=== PATIENT | female | born 1960 | race Caucasian/White ===

== ENCOUNTER 2020-03-22 07:33 | Outpatient (REF) | payer OTHER, SELFPAY ==
[2020-03-22 10:43] LABS: Anion Gap 16 (12-20); Blood Urea Nitrogen 11 mg/dL (9-16); Carbon Dioxide 21 mmol/L (22-29); Chloride 103 mmol/L (96-108); Estimated Glomerular Filt Rate > 60; Potassium 4.5 mmol/l (3.3-5.1); Sodium 135 mmol/L (135-145)
[2020-03-22 11:06] LABS: Free T4 (Free Thyroxine) 1.23 ng/dL (0.71-1.85)
== END 2020-03-22 07:34 | disposition home or self-care (01) ==
LOC: HO.10HDL 07:33
PROVIDERS: Visit Provider Family Medicine
DX: E03.9 Hypothyroidism, unspecified (principal); I10 Essential (primary) hypertension
CPT/HCPCS: 80051; 82565; 84439; 84443; 84520

== ENCOUNTER 2021-01-23 09:13 | Outpatient (REF) | payer OTHER, SELFPAY ==
[2021-01-23 10:40] LABS: Anion Gap 15 (12-20); Blood Urea Nitrogen 8 mg/dL (9-16); Carbon Dioxide 22 mmol/L (22-29); Chloride 102 mmol/L (96-108); Estimated Glomerular Filt Rate > 60; Potassium 4.4 mmol/L (3.3-5.1); Sodium 135 mmol/L (135-145)
[2021-01-23 11:04] LABS: Thyroid Stimulating Hormone 0.11 uIU/mL (0.32-4.0)
== END 2021-01-23 09:14 | disposition home or self-care (01) ==
LOC: HO.10HDL 09:13
PROVIDERS: Visit Provider Family Medicine
DX: I10 Essential (primary) hypertension (principal); E03.9 Hypothyroidism, unspecified
CPT/HCPCS: 36415; 80051; 82565; 84439; 84443; 84520

== ENCOUNTER 2021-10-10 07:49 | Outpatient (REF) | payer OTHER, SELFPAY ==
[2021-10-10 11:05] LABS: Anion Gap 11 (12-20); Blood Urea Nitrogen 13 mg/dL (9-16); Carbon Dioxide 25 mmol/L (22-29); Chloride 109 mmol/L (96-108); Cholesterol 189 mg/dL; Estimated Glomerular Filt Rate > 60; HDL Cholesterol 50 mg/dL; LDL Cholesterol Calculated 122 mg/dl; Potassium 4.9 mmol/L (3.3-5.1); Sodium 140 mmol/L (135-145); Triglycerides 86 mg/dL
[2021-10-10 11:11] LABS: Free T4 (Free Thyroxine) 1.32 ng/dL (0.71-1.85); Thyroid Stimulating Hormone 0.06 uIU/mL (0.32-4.0)
== END 2021-10-10 07:50 | disposition home or self-care (01) ==
LOC: HO.10HDL 07:49
PROVIDERS: Visit Provider Family Medicine
DX: E03.9 Hypothyroidism, unspecified (principal); I10 Essential (primary) hypertension; E78.00 Pure hypercholesterolemia, unspecified
CPT/HCPCS: 36415; 80051; 80061; 82565; 84439; 84443; 84520

== ENCOUNTER 2022-08-22 07:40 | Outpatient (REF) | payer OTHER, SELFPAY | END 2022-08-22 07:41 | disposition home or self-care (01) | LOC: HO.10HDL 07:40 | PROVIDERS: Visit Provider Family Medicine | DX: Z13.89 Encounter for screening for other disorder (principal) ==

== ENCOUNTER 2023-04-21 07:35 | Outpatient (REF) | payer OTHER, SELFPAY ==
[2023-04-21 11:31] LABS: Anion Gap 12 (12-20); Blood Urea Nitrogen 11 mg/dL (9-16); Carbon Dioxide 25 mmol/L (22-29); Chloride 101 mmol/L (96-108); Estimated Glomerular Filt Rate > 60; Glucose Fasting 105 mg/dL (60-99); Sodium 134 mmol/L (135-145)
[2023-04-21 11:43] LABS: Free T4 (Free Thyroxine) 1.02 ng/dL (0.71-1.85); Thyroid Stimulating Hormone 0.08 uIU/mL (0.32-4.0)
== END 2023-04-21 07:36 | disposition home or self-care (01) ==
LOC: HO.10HDL 07:35
PROVIDERS: Visit Provider Family Medicine
DX: I10 Essential (primary) hypertension (principal); E03.9 Hypothyroidism, unspecified; Z83.3 Family history of diabetes mellitus; R35.0 Frequency of micturition
CPT/HCPCS: 36415; 80051; 82565; 82947; 84439; 84443; 84520

== ENCOUNTER 2023-05-08 09:14 | Outpatient (REF) | payer OTHER, SELFPAY ==
[2023-05-08 10:22] LABS: MANUAL DIFF FLAG NO
[2023-05-08 10:26] LABS: Basophils Absolute Auto 0.1 X10*3/uL (0.0-0.2); Basophils Percent Auto 1.1 % (0-2); Eosinophils Absolute Auto 0.2 X10*3/uL (0.0-0.4); Eosinophils Percent Auto 4.3 % (0-4); Hematocrit 38.6 % (37.0-47.0); Hemoglobin 12.8 g/dl (12.0-16.0); Imm Gran Abs Auto 0.01 X10*3/uL (0.00-0.03); Imm Gran Pct Auto 0.2 % (0.0-0.4); Mean Corpuscular HGB Conc 33.2 g/dl (31.0-35.0); Mean Corpuscular Hemoglobin 31.9 pg (27.0-33.0); Mean Corpuscular Volume 96.3 fL (80.0-98.0); Mean Platelet Volume 9.1 fL (9.4-12.3); Monocytes Absolute Auto 0.5 X10*3/uL (0.1-1.2); Monocytes Percent Auto 11.9 % (2-11); Neutrophils Absolute Auto 1.6 x10*3/uL (2.0-8.3); Neutrophils Percent Auto 36.5 % (45-73); Platelet Count 255 X10*3/uL (160-400); Red Blood Count 4.01 X10*6/uL (4.20-5.50); Red Cell Distribution Width 11.6 % (11.0-16.0); White Blood Count 4.4 X10*3/uL (4.8-10.8)
[2023-05-08 10:50] LABS: Rheumatoid Factor < 13.0 IU/mL (<15.0)
[2023-05-08 10:52] LABS: C Reactive Protein 0.11 mg/dL (< or = 0.50)
[2023-05-08 11:01] LABS: Ferritin 397 ng/mL (10-250)
[2023-05-08 11:10] LABS: Erythrocyte Sedimentation Rate 11 MM/HR (0-20)
[2023-05-13 11:14] LABS: Anti Nuclear Antibody Screen NEGATIVE (NEGATIVE)
== END 2023-05-08 09:15 | disposition home or self-care (01) ==
LOC: HO.10HDL 09:14
PROVIDERS: Visit Provider Family Medicine
DX: M19.90 Unspecified osteoarthritis, unspecified site (principal); M79.10 Myalgia, unspecified site
CPT/HCPCS: 36415; 82550; 82728; 85025; 85652; 86038; 86140; 86431

== ENCOUNTER 2023-11-17 07:36 | Outpatient (REF) | payer OTHER, SELFPAY ==
[2023-11-17 11:22] LABS: Estimated Average Glucose 100 mg/dL; Hemoglobin A1C 109.4872 umol/L; Hemoglobin A1c % 5.1 % (<6.0)
[2023-11-17 11:28] LABS: Anion Gap 14 (12-20); Blood Urea Nitrogen 9 mg/dL (9-16); Carbon Dioxide 25 mmol/L (22-29); Chloride 104 mmol/L (96-108); Estimated Glomerular Filt Rate > 60; Glucose Fasting 101 mg/dL (60-99); Potassium 4.4 mmol/L (3.3-5.1); Sodium 139 mmol/L (135-145)
[2023-11-17 11:47] LABS: Free T4 (Free Thyroxine) 1.09 ng/dL (0.71-1.85)
== END 2023-11-17 07:37 | disposition home or self-care (01) ==
LOC: HO.10HDL 07:36
PROVIDERS: Visit Provider Family Medicine
DX: I10 Essential (primary) hypertension (principal); E03.9 Hypothyroidism, unspecified; Z83.3 Family history of diabetes mellitus; Z13.1 Encounter for screening for diabetes mellitus
CPT/HCPCS: 36415; 80051; 82565; 82947; 83036; 84439; 84520

== ENCOUNTER 2024-04-21 15:58 | Outpatient (REF) | payer OTHER, SELFPAY | END 2024-04-21 15:59 | disposition home or self-care (01) | LOC: HO.CT 15:58 | PROVIDERS: PCP Family Medicine; Visit Provider Otolaryngology | DX: J33.0 Polyp of nasal cavity (principal); J34.2 Deviated nasal septum | CPT/HCPCS: 70486 ==

== ENCOUNTER 2024-09-10 15:01 | Outpatient (REF) | payer OTHER, SELFPAY ==
--- NOTE | ~2024-09-10 | US_ITS ---
EXAMINATION: US EXTRACRANIAL CAROTID DUPLEX, BILATERAL CLINICAL INFORMATION: Decreased pulses, right carotid artery. COMPARISON: None available. TECHNIQUE: Real-time ultrasound and Doppler techniques (integrating B-mode 2-D vascular images, Doppler spectral analysis and color-flow Doppler imaging) were utilized to interrogate the extracranial carotid arteries, the vertebral arteries and proximal subclavian arteries bilaterally. The degree of stenosis is determined by criteria similar to NASCET. FINDINGS: Right Side: 1. There is no atherosclerotic plaque seen in the bifurcation/proximal ICA region. 2. The common carotid artery PSV proximally is 124 cm/s and distally 111 cm/s. 3. The proximal internal carotid artery velocities are 95 cm/s systolic and 32 cm/s diastolic. 4. The proximal external carotid artery PSV is 140 cm/s. 5. The vertebral artery shows antegrade flow. 6. The subclavian artery waveforms are triphasic. Left Side: 1. There is no atherosclerotic plaque seen in the bifurcation/proximal ICA region. 2. The common carotid artery PSV proximally is 116 cm/s and distally 87 cm/s. 3. The proximal internal carotid artery velocities are 67 cm/s systolic and 27 cm/s diastolic. 4. The proximal external carotid artery PSV is 90 cm/s. 5. The vertebral artery shows antegrade flow. 6. The subclavian artery waveforms are triphasic. US/US carotid duplex BI IMPRESSION: 1. RIGHT: No plaque. No hemodynamically significant stenosis by ultrasound criteria. 2. LEFT: No plaque. No hemodynamically significant stenosis by ultrasound criteria. Electronically signed by: Lon Liu MD 09/14/2024 07:53 AM EDT
== END 2024-09-10 15:02 | disposition home or self-care (01) ==
LOC: HO.US 15:01
PROVIDERS: PCP Family Medicine; Visit Provider Family Medicine
DX: I65.21 Occlusion and stenosis of right carotid artery (principal)
CPT/HCPCS: 93880

== ENCOUNTER → 2024-09-10 15:18 | Outpatient (BNV) | payer OTHER, SELFPAY | PROVIDERS: PCP Family Medicine; Visit Provider Radiology Diagnostic Radiology | DX: I77.9 Disorder of arteries and arterioles, unspecified (principal) | CPT/HCPCS: 93880 ==

== ENCOUNTER 2024-10-11 07:37 | Outpatient (REF) | payer OTHER, SELFPAY ==
[2024-10-11 10:51] LABS: Basophils Absolute Auto 0.1 X10*3/uL (0.0-0.2); Basophils Percent Auto 1.7 % (0-2); Eosinophils Absolute Auto 0.3 X10*3/uL (0.0-0.4); Eosinophils Percent Auto 6.7 % (0-4); Hematocrit 36.3 % (37.0-47.0); Hemoglobin 12.7 g/dl (12.0-16.0); Imm Gran Abs Auto 0.01 X10*3/uL (0.00-0.03); Imm Gran Pct Auto 0.2 % (0.0-0.4); MANUAL DIFF FLAG SCAN; Mean Corpuscular Hemoglobin 33.7 pg (27.0-33.0); Mean Corpuscular Volume 96.3 fL (80.0-98.0); Mean Platelet Volume 9.1 fL (9.4-12.3); Monocytes Absolute Auto 0.4 X10*3/uL (0.1-1.2); Monocytes Percent Auto 9.9 % (2-11); Neutrophils Absolute Auto 1.4 x10*3/uL (2.0-8.3); Neutrophils Percent Auto 32.5 % (45-73); Platelet Count 275 X10*3/uL (160-400); Red Blood Count 3.77 X10*6/uL (4.20-5.50); Red Cell Distribution Width 12.4 % (11.0-16.0); SCAN SMEAR FLAG 1; White Blood Count 4.2 X10*3/uL (4.8-10.8)
[2024-10-11 11:07] LABS: Anion Gap 13 (12-20); Blood Urea Nitrogen 11 mg/dL (9-16); Carbon Dioxide 20 mmol/L (22-29); Chloride 107 mmol/L (96-108); Estimated Glomerular Filt Rate > 60; Potassium 4.1 mmol/L (3.3-5.1); Sodium 136 mmol/L (135-145)
[2024-10-11 11:25] LABS: Free T4 (Free Thyroxine) 1.09 ng/dL (0.71-1.85); Thyroid Stimulating Hormone 0.11 uIU/mL (0.32-4.0)
[2024-10-11 11:41] LABS: SLIDE REVIEW VERIFIED
== END 2024-10-11 07:38 | disposition home or self-care (01) ==
LOC: HO.10HDL 07:37
PROVIDERS: Visit Provider Family Medicine
DX: I10 Essential (primary) hypertension (principal); E03.9 Hypothyroidism, unspecified; D72.819 Decreased white blood cell count, unspecified
CPT/HCPCS: 36415; 80051; 82565; 84439; 84443; 84520; 85025

== ENCOUNTER 2025-01-11 15:26 | Outpatient (AMB) | payer OTHER, SELFPAY ==
--- OUTSIDE RECORDS SUMMARY | 2025-01-11 16:42 | XMS_ITS | Patient Health Record ---
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 Name Role Phone Dwayne Velazquez MD Primary Care Provider Unavailab Uzair Owens Unavailable [phone] Allergies Allergen (clinical drug ingredient) Drug/Non Drug Allergy documented on EMR Reaction Allergy Type Onset Date Status codeine Codeine Unknown Drug Allergy Active latex Unknown Drug Allergy Active Adhesive Tape Unknown Drug Allergy Act adan Shrimp/Shell Fish Unknown Drug Allergy Active Reason For Referral No Information Medications Medication SIG (Take, Route, Fr equency, Duration) Notes Start Date End Date Status Lisinopril Active Lorazepam Active Levothyroxine Sodium Active Social History Tobacco Use: Social History Observation Description Date Details (start date - stop date) Current Smoker NA - NA Tobacco Use/Smoking Question Answer Notes Are you a: current smoker How often do you smoke cigarettes? every day Alcohol Screen Question Answer Notes Did you have a drink contain ing alcohol in the past year? Yes How often did you have a dri nk containing alcohol in the past year? 2 to 3 times a week (3 points) Points 3 Interpretation Positive Problems Problem Type SNOMED Code ICD Code Onset Dates Problem Status W/U Status Risk Notes Problem Plantar wart (87549410) Plantar wart (B07.0) Active confirmed Plan Of Treatment Pending Test Test Name Order Date [id number] Destruction, -08/09/2014 [id number] Destruction, 06-0812/26/2015 Insurance Providers Payer Name Payer Address Payer Phone Subscriber Number Group Number Insured Name Patient Relationship to Insured Coverage Start Date Coverage End Date [facility] [address] [place] [address] [id number] Tiffany Scott Self - patient is the insured Medical (General) History Medical History History ICD Code Anxiety Measles Hypertension Sinus conditions Thyroid disorder
== END 2025-01-11 15:37 | disposition home or self-care (01) ==
LOC: HO.HMGAL 15:26
PROVIDERS: PCP Family Medicine; Visit Provider Registered Nurse Emergency
DX: J30.89 Other allergic rhinitis (principal)
CPT/HCPCS: 95117; 95165

== ENCOUNTER 2025-01-26 15:35 | Outpatient (AMB) | payer OTHER, SELFPAY ==
--- NOTE | 2025-01-26 08:33 | A.OFFPC_ITS ---
Vital Signs 01/26/25 15:44 Height 5 ft 6 in Weight 159 lb BMI 25.7 BP 134/80 Blood Pressure Location Rt brachial Position Sitting Pulse 74 Pulse Source Pulse Oximeter Temp 97.8 F Temp Source Temporal Artery Scan Pulse Oximetry (%) 99 Oxygen Delivery Method Room Air Intake Visit Reasons: Routine/ Dr Velazquez Medical Affairs Director Required: No Accompanied by: Self / Same As Patient Allergies acetaminophen (Tylenol-Codeine #3) Allergy (Unknown, Verified 01/26/25 08:34) Unknown codeine (Tylenol-Codeine #3) Allergy (Unknown, Verified 01/26/25 08:34) Unknown diphenhydramine (Benadryl) Allergy (Unknown, Verified 01/26/25 08:34) Unknown latex (LATEX) Adverse Reaction (Unknown, Verified 01/26/25 08:34) UNKNOWN ENVIRONMENTAL Adverse Reaction (Unknown, Uncoded 02/10/20 17:12) UNKNOWN SEASONAL ALLERGIES Adverse Reaction (Unknown, Uncoded 02/10/20 17:12) UNKNOWN Tobacco use date assessed: 01/26/25 Dental Screening Dental Screen Date: 01/26/25 Did you have a dental visit in the last 12 months?: Yes Did you have a dental problem in the last 6 months where you did not have access to dental care?: No HPI HPI Comments History of Present Illness Details The patient is a 64-year-old female presenting to [facility]. She has a history of hypertension managed with lisinopril 20mg, and hypothyroidism managed with levothyroxine 100 mcg. . Her blood pressure today was 134/80. Her medications were refilled recently, and she reports being compliant with her medication regimen. Her last TSH was 0.11 in September 2024. The patient experiences anxiety and insomnia, for which she has been taking lorazepam for the past five to six years. She reports trying various therapies, including Depakote, Ambien, melatonin, and trazodone, but none have been effective in managing her symptoms. She expresses concern about the side effects of medications and prefers to avoid taking pills unless necessary. The patient also reports arthritis-related pain, which she manages with ibuprofen as needed. She engages in physical work and walking, which exacerbates her pain, but she tries to limit ibuprofen use due to gastrointestinal side effects. Preventative care discussions included the need for colon cancer screening, which the patient acknowledges she has not yet pursued. She has no family history of breast cancer and has never had a mammogram, citing a lack of perceived need. [facility] Medical History (Updated 01/28/25 @ 16:49 by DANIELLE Weber) Anxiety Hypertension Hypothyroidism Joint pain Family History (Updated 01/26/25 @ 15:49 by Marjorie Valerio MA) Mother No problems noted. Father No problems noted. Social History Housing: House Patient Tobacco Use Status: Former Tobacco user e-Cigarette/Vaping Use: Former Use service: No Current occupational status: employed Cognitive needs: No Hearing needs: No Vision needs: Yes (reading glasses) Questionnaire PHQ-9 Over the last 2 weeks, how often have you been bothered by any of the following problems? 1. Little interest or pleasure in doing things: not at all 2. Feeling down, depressed, or hopeless: nearly every day (anxiety) 3. Trouble falling or staying asleep, or sleeping too much: nearly every day (trouble falling as sleep every night ) 4. Feeling tired or having little energy: nearly every day (always tired) 5. Poor appetite or overeating: not at all 6. Feeling bad about yourself - or that you are a failure or have let yourself or your family down: not at all 7. Trouble concentrating on things, such as reading the newspaper or watching television: not at all 8. Moving or speaking so slowly that other people could have noticed. Or the opposite - being so fidgety or restless that you have been moving around a lot more than usual: not at all 9. Thoughts that you would be better off or of hurting yourself in some way: not at all Total score: 9 Source: Developed by Drs. Kenton Herrmann, Carmella Mccloud, Mingo Valle and colleagues, with an educational marlyn from [employer]. Thrive Questionnaire Date Thrive assessed: 01/26/25 I am a: Patient Within the past 12 months, did the food you bought not last and you didn't have the money to get more?: Never true Within the past 12 months, did you worry whether your food would run out before you got money to buy more?: Never true Do you have trouble paying for medicines?: No Do you have trouble getting transportation to medical appointments?: No Do you have trouble paying your heating and electricity bill?: No Do you have trouble taking care of your child, family member or friend?: No Do you have trouble with day-to-day activities such as bathing, preparing meals, shopping, managing finances, etc.?: No Are you currently unemployed and looking for a job?: No Are you interested in more education?: No THRIVE Score: 0 AUDIT C Alcohol Use Questionnaire (AUDIT-C) 1. How often do you have a drink containing alcohol?: Monthly or less (sometimes) 2. How many drinks containing alcohol do you have on a typical day when you are drinking?: 1 or 2 3. How often do you have six or more drinks on one occasion?: Less than monthly Total Score: 2 SHERI-7 AMB Questionnaire SHERI-7 Date SHERI - 7 assessed: 01/26/25 Feeling nervous, anxious, or on edge: 3 = Nearly every day (pt said feeling anxious a lot ) Not being able to stop or control worryin = Not at all Worrying too much about different things: 3 = Nearly every day (a lot of worry regarding work) Trouble relaxin = Nearly every day Being so restless that it is hard to sit still: 0 = Not at all Becoming easily annoyed or irritable: 0 = Not at all Feeling afraid as if something awful might happen: 0 = Not at all Total SHERI-7 score (0-4 normal; 5-9 mild; 10-14 moderate; 15-21 severe): 9 Source: Developed by Drs. Kenton Herrmann, Carmelal Mccloud, Mingo Valle and colleagues, with an educational marlyn from [employer]. Review of Systems Const Details: CONSTITUTIONAL Negative HEAD/NECK Negative EAR/NOSE/MOUTH/THROAT Negative RESPIRATORY Denies cough, dyspnea CARDIOVASCULAR Denies chest pain, palpitations GASTROINTESTINAL Negative MUSCULOSKELETAL Reports arthritis-related pain, exacerbated by physical activity NEUROLOGICAL denies headaches PSYCHIATRIC Reports insomnia, anxiety Physical exam (Primary Care) Vital Signs: Last Vital Signs Temp 97.8 F 01/26/25 15:44 Pulse 74 01/26/25 15:44 BP 134/80 01/26/25 15:44 Pulse Ox 99 01/26/25 15:44 Oxygen Delivery Method Room Air 01/26/25 15:44 BMI result Body Mass Index 25.7 GENERAL Well developed, Well nourished, in no apparent distress HEENT Head-Normocephalic Eyes- PERRLA, EOMI, Conjuctiva clear, lids WNL Ears- Canals clear, TMs WNL Mouth/Throat-No lesions, no erythema, no exudate Neck- Supple, No lymphadenopathy, thyroid WNL RESPIRATORY Normal I:E, Clear to auscultation CARDIOVASCULAR Regular, rate and rhythm, No murmurs or rubs GASTROINTESTINAL Soft, nontender, normal bowel sounds, no masses MUSCULOSKELETAL Multiple joint pains, no swelling or deformity NEUROLOGICAL Gait normal PSYCHIATRIC Oriented to person, place and time Mood and affect- anxious Appearance WNL Speech WNL Thought processes WNL Tobacco/Smoking Status: Tobacco use Status Tobacco use date assessed 01/26/25 01/26/25 08:35 Patient Tobacco Use Status Former Tobacco user 01/26/25 15:51 e-Cigarette/Vaping Use Former Use 01/26/25 15:51 PHQ-9: PHQ-9 Score PHQ-9: Total score 9 01/26/25 16:21 Thrive Assessment: Date of Thrive Assessment Date Thrive assessed 01/26/25 01/26/25 08:35 Coding Level of Care Code New Pt New Pt Level 4 (76328) Patient Type New Diagnoses Acquired hypothyroidism E03.9 Hypothyroidism type: acquired Pain in other joint M25.59 Joint pain location: other joint Primary hypertension I10 Hypertension type: primary hypertension Anxiety F41.9 Time Spent (min) 35 Comment Time spent on chart review, H&P, medication reconciliation, patient education and orders Assessment & Plan Assessment & Plan (1) Hypothyroidism: Code(s): E03.9 - Hypothyroidism, unspecified Category: Medical Qualifiers: Hypothyroidism type: acquired Qualified Code(s): E03.9 - Hypothyroidism, unspecified Plan: Will get TSH. Patient will continue current medications. Will monitor. Patient will follow up in 3 months. (2) Joint pain: Code(s): M25.50 - Pain in unspecified joint Category: Medical Qualifiers: Joint pain location: other joint Qualified Code(s): M25.59 - Pain in other specified joint Plan: The patient manages arthritis-related pain with ibuprofen as needed, while engaging in physical work and walking. She limits ibuprofen use due to gastrointestinal side effects. (3) Hypertension: Code(s): I10 - Essential (primary) hypertension Category: Medical Qualifiers: Hypertension type: primary hypertension Qualified Code(s): I10 - Essential (primary) hypertension Plan: The patient's hypertension is managed with lisinopril, and her medication was recently refilled. (4) Anxiety: Code(s): F41.9 - Anxiety disorder, unspecified Category: Medical Plan: The patient has been taking lorazepam for anxiety for the past five to six years, with varying success from other therapies. A trial of sertraline is planned to manage her anxiety, with continued use of lorazepam as needed for now. Patient to follow up in 6 weeks. Plan I discussed with the patient the management of her anxiety and insomnia, recommending a trial of sertraline while continuing lorazepam as needed. We also talked about the importance of preventative screenings, such as colon cancer screening, which she has not yet pursued. Orders: Orders Complete Blood Count Auto Diff 01/26/25 Z00.00 - Encounter for general adult medical examination without abnormal findings Comprehensive Met. Panel 01/26/25 Z00.00 - Encounter for general adult medical examination without abnormal findings, Z13.1 - Encounter for screening for diabetes mellitus TSH reflex Free T4 01/26/25 E03.9 - Hypothyroidism, unspecified Lipid Panel 01/26/25 Z13.220 - Encounter for screening for lipoid disorders Medications: New sertraline take at bedtime 25 mg PO DAILY 90 tabs 0RF Patient Instructions: - Continue taking lisinopril and levothyroxine as prescribed. - Start sertraline as directed, and continue lorazepam as needed. - Schedule and complete colon cancer screening. - Follow up in six weeks to review medication effects and lab results.
[2025-01-26 15:44] VITALS: BP 134/80; PULSE 74; TEMP 36.6; O2SAT 99; BMI 25.7
--- OUTSIDE RECORDS SUMMARY | 2025-01-26 17:35 | XMS_ITS | Patient Health Record ---
Author Organization [facility] Address [address] [place] [address] Care Team Providers Care Aircraft Refueller Name Role Phone Dwayne Velazquez MD Primary Care Provider Unavailab Uzair Owens Unavailable [phone] Allergies Allergen (clinical drug ingredient) Drug/Non Drug [...] W/U Status Risk Notes Problem Plantar wart ([id number]) Plantar wart (B07.0) Active confirmed Plan Of Treatment Pending Test Test Name Order Date [id number] Destruction, -08/09/2014 [id number] Destruction, 06-0812/26/2015 Insurance Providers Payer Name Payer Address Payer Phone Subscriber Number Group Number Insured Name Patient Relationship to Insured Coverage Start Date Coverage End Date [facility] [address] [place] [address] [id number] Tiffany Scott Self - patient is the insured Medical (General) History Medical History History ICD Code Anxiety Measles Hypertension Sinus conditions Thyroid disorder
== END 2025-01-26 16:26 | disposition home or self-care (01) ==
LOC: HO.HMCHD 15:35
PROVIDERS: PCP Family Medicine; Visit Provider Physician Assistant Medical
DX: E03.9 Hypothyroidism, unspecified (principal); M25.59 Pain in other specified joint; I10 Essential (primary) hypertension; F41.9 Anxiety disorder, unspecified

== ENCOUNTER 2025-02-14 08:33 | Outpatient (AMB) | payer OTHER, SELFPAY ==
--- OUTSIDE RECORDS SUMMARY | 2025-02-14 09:52 | XMS_ITS | Patient Health Record ---
Author Organization [facility] Address [address] [place] [address] Care Team Providers Care Lock Plater Name Role Phone Dwayne Velazquez MD Primary Care Provider Unavailab Uzair Owens Unavailable [phone] Allergies Allergen (clinical drug ingredient) Drug/Non Drug [...] W/U Status Risk Notes Problem Plantar wart ([id number]) Plantar wart (B07.0) Active confirmed Plan Of Treatment Pending Test Test Name Order Date [id number] Destruction, -08/09/2014 [id number] Destruction, 06-0812/26/2015 Insurance Providers Payer Name Payer Address Payer Phone Subscriber Number Group Number Insured Name Patient Relationship to Insured Coverage Start Date Coverage End Date [facility] [address] [place] [address] [id number] Tiffany Scott Self - patient is the insured Medical (General) History Medical History History ICD Code Anxiety Measles Hypertension Sinus conditions Thyroid disorder
== END 2025-02-14 08:40 | disposition home or self-care (01) ==
LOC: HO.HMGAL 08:33
PROVIDERS: PCP Physician Assistant Medical; Visit Provider Registered Nurse Emergency
DX: J30.89 Other allergic rhinitis (principal)
CPT/HCPCS: 95117; 95165

== ENCOUNTER 2025-03-09 07:36 | Outpatient (REF) | payer OTHER, SELFPAY ==
--- OUTSIDE RECORDS SUMMARY | 2025-03-09 07:38 | XMS_ITS | Patient Health Record ---
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 Name Role Phone Dwayne Velazquez MD Primary Care Provider Unavailab Uzair Owens Unavailable [phone] Allergies Allergen (clinical drug ingredient) Drug/Non Drug [...] W/U Status Risk Notes Problem Plantar wart ([id number]) Plantar wart (B07.0) Active confirmed Plan Of Treatment Pending Test Test Name Order Date [id number] Destruction, -08/09/2014 [id number] Destruction, 06-0812/26/2015 Insurance Providers Payer Name Payer Address Payer Phone Subscriber Number Group Number Insured Name Patient Relationship to Insured Coverage Start Date Coverage End Date [facility] [address] [facility] [place] [address] [id number] Tiffany Scott Self - patient is the insured Medical (General) History Medical History History ICD Code Anxiety Measles Hypertension Sinus conditions Thyroid disorder
[2025-03-09 09:50] LABS: Hematocrit 34.5 % (37.0-47.0); Hemoglobin 12.1 g/dl (12.0-16.0); Imm Gran Abs Auto 0.01 X10*3/uL (0.00-0.03); Imm Gran Pct Auto 0.2 % (0.0-0.4); Lymphocytes Absolute Auto 2.1 X10*3/uL (1.2-4.9); MANUAL DIFF FLAG SCAN; Mean Corpuscular HGB Conc 35.1 g/dl (31.0-35.0); Mean Corpuscular Hemoglobin 33.5 pg (27.0-33.0); Mean Corpuscular Volume 95.6 fL (80.0-98.0); NRBC Abs Auto 0.000 X10*3/uL (0.0-0.012); NRBC Pct Auto 0.0 /100WBC (0.0-0.2); Platelet Count 257 X10*3/uL (160-400); Red Blood Count 3.61 X10*6/uL (4.20-5.50); SCAN SMEAR FLAG 1; White Blood Count 4.1 X10*3/uL (4.8-10.8)
[2025-03-09 10:18] LABS: Alanine Aminotransferase 43 U/L (0-31); Albumin Level 4.4 g/dL (3.5-5.0); Alkaline Phosphatase 63 U/L (39-117); Anion Gap 12 (12-20); Aspartate Amino Transferase 34 U/L (5-31); Blood Urea Nitrogen 9 mg/dL (9-16); Calcium 9.1 mg/dL (8.4-10.2); Carbon Dioxide 22 mmol/L (22-29); Chloride 108 mmol/L (96-108); Cholesterol 211 mg/dL (<200); Estimated Glomerular Filt Rate > 60; HDL Cholesterol 65 mg/dL (>40); Potassium 4.0 mmol/L (3.3-5.1); Sodium 138 mmol/L (135-145); Total Protein 7.1 g/dL (6.5-8.0); Triglycerides 290 mg/dL (<150)
[2025-03-09 11:44] LABS: Free T4 (Free Thyroxine) 1.09 ng/dL (0.71-1.85)
== END 2025-03-09 07:37 | disposition home or self-care (01) ==
LOC: HO.10HDL 07:36
PROVIDERS: Visit Provider Physician Assistant Medical
DX: Z00.00 Encounter for general adult medical examination without abnormal findings (principal); Z13.220 Encounter for screening for lipoid disorders; Z13.1 Encounter for screening for diabetes mellitus; E03.9 Hypothyroidism, unspecified
CPT/HCPCS: 36415; 80053; 80061; 84439; 84443; 85025

== ENCOUNTER 2025-03-15 15:39 | Outpatient (AMB) | payer OTHER, SELFPAY ==
[2025-03-15 07:55] VITALS: BP 126/82; PULSE 83; TEMP 36.2; O2SAT 98; BMI 25.7
--- NOTE | 2025-03-15 07:55 | A.OFFPC_ITS ---
Vital Signs 03/15/25 07:55 Height 5 ft 6 in Weight 159 lb 2 oz BMI 25.7 BP 126/82 Blood Pressure Location Lt brachial Position Sitting Pulse 83 Pulse Source Pulse Oximeter Temp 97.2 F Temp Source Temporal Artery Scan Pulse Oximetry (%) 98 Oxygen Delivery Method Room Air Intake Visit Reasons: routine Certified Ophthalmic Assistant Required: No Accompanied by: Self / Same As Patient Allergies acetaminophen (Tylenol-Codeine #3) Allergy (Unknown, Verified 03/15/25 07:55) Unknown codeine (Tylenol-Codeine #3) Allergy (Unknown, Verified 03/15/25 07:55) Unknown diphenhydramine (Benadryl) Allergy (Unknown, Verified 03/15/25 07:55) Unknown latex (LATEX) Adverse Reaction (Unknown, Verified 03/15/25 07:55) UNKNOWN ENVIRONMENTAL Adverse Reaction (Unknown, Uncoded 02/10/20 17:12) UNKNOWN SEASONAL ALLERGIES Adverse Reaction (Unknown, Uncoded 02/10/20 17:12) UNKNOWN Medication List - Last Reconciled 03/15/25 by DANIELLE Weber doxycycline hyclate 100 mg PO BID ibuprofen 800 mg PO Q12H PRN levothyroxine (Levoxyl) 88 mcg PO DAILY lisinopril 20 mg PO DAILY lorazepam 1 mg PO BID PRN sertraline 25 mg PO DAILY Tobacco use date assessed: 03/15/25 Dental Screening Dental Screen Date: 03/15/25 Did you have a dental visit in the last 12 months?: Yes Did you have a dental problem in the last 6 months where you did not have access to dental care?: No HPI HPI Comments History of Present Illness Details The patient is a 64-year-old female with HTN, Hypothyroidism, anxiety, insomnia and joing pains presenting for follow up and management of chronic sinusitis, evaluation of borderline hypothyroidism, and assessment of anxiety and insomnia. The patient reports a history of chronic sinusitis, which was recently evaluated by a surgeon who performed sinus sculpting. Despite treatment with doxycycline and nasal spray, she continues to experience congestion and swelling. She is scheduled for a follow-up and a potential CT scan, pending insurance approval due to previous multiple scans. The patient has borderline hypothyroidism, with symptoms including hair loss and fatigue. Her TSH on 03/09 was 0.05. This is prompting a planned adjustment in her medication dosage from 100 mcg to 88 mcg. She has been experiencing hair loss for years, which has recently worsened. The patient experiences anxiety and insomnia, for which she has been prescribed sertraline. Despite taking the medication, she reports persistent high stress and disrupted sleep patterns, waking up at 2 AM regularly. She has a history of trying various sleep aids, with Ambien causing sleepwalking, leading to its discontinuation. She continues to have fatigue. The patient has a history of hypertension, which is currently well-controlled wiht Lisinopril. Her BP today was 126/82. She has also noted a weight gain of approximately 6 pounds, which she attributes to her current medication regimen. Patient was informed and verbally consented to the use of an ambient scribe for clinic note documentation during this visit. [facility] Medical History (Updated 03/15/25 @ 17:44 by DANIELLE Weber) Anxiety Chronic sinusitis Hypertension Hypothyroidism Insomnia Joint pain Family History (Updated 03/15/25 @ 15:56 by Marjorie Valerio MA) Mother No problems noted. Father No problems noted. Social History Housing: House Patient Tobacco Use Status: Former Tobacco user e-Cigarette/Vaping Use: Former Use service: No Current occupational status: employed Cognitive needs: No Hearing needs: No Vision needs: Yes (reading glasses) Questionnaire PHQ-9 Over the last 2 weeks, how often have you been bothered by any of the following problems? 1. Little interest or pleasure in doing things: not at all 2. Feeling down, depressed, or hopeless: nearly every day 3. Trouble falling or staying asleep, or sleeping too much: nearly every day 4. Feeling tired or having little energy: not at all 5. Poor appetite or overeating: not at all 6. Feeling bad about yourself - or that you are a failure or have let yourself or your family down: not at all 7. Trouble concentrating on things, such as reading the newspaper or watching television: not at all 8. Moving or speaking so slowly that other people could have noticed. Or the opposite - being so fidgety or restless that you have been moving around a lot more than usual: not at all 9. Thoughts that you would be better off or of hurting yourself in some wa y: not at all Total score: 6 Depression Screening Interpretation: Negative Depression Screening Done: Yes 44629 - PHQ-9 Billing: Yes Source: Developed by Drs. Kenton Herrmann, Carmella Mccloud, Mingo Valle and colleagues, with an educational marlyn from [employer]. Thrive Questionnaire Date Thrive assessed: 03/15/25 I am a: Patient Within the past 12 months, did the food you bought not last and you didn't have the money to get more?: Never true Within the past 12 months, did you worry whether your food would run out before you got money to buy more?: Never true Do you have trouble paying for medicines?: No Do you have trouble getting transportation to medical appointments?: No Do you have trouble paying your heating and electricity bill?: No Do you have trouble taking care of your child, family member or friend?: No Do you have trouble with day-to-day activities such as bathing, preparing meals, shopping, managing finances, etc.?: No Are you currently unemployed and looking for a job?: No Are you interested in more education?: No THRIVE Score: 0 AUDIT C Alcohol Use Questionnaire (AUDIT-C) 1. How often do you have a drink containing alcohol?: Monthly or less 2. How many drinks containing alcohol do you have on a typical day when you are drinking?: 1 or 2 3. How often do you have six or more drinks on one occasion?: Less than monthly Total Score: 2 SHERI-7 AMB Questionnaire SHERI-7 Date SHERI - 7 assessed: 03/15/25 Feeling nervous, anxious, or on edge: 3 = Nearly every day Not being able to stop or control worryin = Nearly every day Worrying too much about different things: 3 = Nearly every day Trouble relaxin = Nearly every day Being so restless that it is hard to sit still: 0 = Not at all Becoming easily annoyed or irritable: 0 = Not at all Feeling afraid as if something awful might happen: 0 = Not at all Total SHERI-7 score (0-4 normal; 5-9 mild; 10-14 moderate; 15-21 severe): 12 Source: Developed by Carmella Montes Kurt Kroenke and colleagues, with an educational marlyn from [employer]. SHERI-7 Assessment Billing SHERI-7 Assessment Tool: SHERI-7 Assessment 50328 Review of Systems Narrative CONSTITUTIONAL Reports hair loss and fatigue Reports weight gain of 6 pounds HEAD/NECK Negative EAR/NOSE/MOUTH/THROAT Reports congestion and swelling in sinuses RESPIRATORY Negative CARDIOVASCULAR Denies chest pain, reports well-controlled hypertension MUSCULOSKELETAL multiple joint pains NEUROLOGICAL Negative PSYCHIATRIC Reports anxiety and insomnia, waking up at 2 AM Physical exam (Primary Care) Vital Signs: Last Vital Signs Temp 97.2 F 03/15/25 07:55 Pulse 83 03/15/25 07:55 BP 126/82 03/15/25 07:55 Pulse Ox 98 03/15/25 07:55 Oxygen Delivery Method Room Air 03/15/25 07:55 BMI result Body Mass Index 25.7 GENERAL Well developed, Well nourished, in no apparent distress HEENT Head-Normocephalic Neck- Supple, No lymphadenopathy, thyroid WNL RESPIRATORY Normal I:E, Clear to auscultation CARDIOVASCULAR Regular, rate and rhythm, No murmurs or rubs MUSCULOSKELETAL Joints- no swelling or deformity NEUROLOGICAL Gait normal PSYCHIATRIC Oriented to person, place and time Mood and affect anxiety Appearance WNL Speech WNL Thought processes WNL Tobacco/Smoking Status: Tobacco use Status Tobacco use date assessed 03/15/25 03/15/25 07:56 Patient Tobacco Use Status Former Tobacco user 03/15/25 07:56 e-Cigarette/Vaping Use Former Use 03/15/25 07:56 PHQ-9: PHQ-9 Score PHQ-9: Total score 6 03/15/25 15:58 Depression Screening Interpretation: Negative Thrive Assessment: Date of Thrive Assessment Date Thrive assessed 03/15/25 03/15/25 07:56 Coding Level of Care Code Established Pt Est Pt Level 4 (65601) Patient Type Established Diagnoses Anxiety F41.9 Primary hypertension I10 Hypertension type: primary hypertension Acquired hypothyroidism E03.9 Hypothyroidism type: acquired Insomnia G47.00 Chronic sinusitis J32.9 Additional Codes PHQ-9 - 27596 - PHQ-9 Billing: Yes ([id number]) SHERI-7 Assessment Billing - SHERI-7 Assessment Tool: SHERI-7 Assessment 19566 ([id number]) Time Spent (min) 30 Comment Time was spent on Chart review, H&P, patient education and orders. Assessment & Plan Assessment & Plan (1) Anxiety: Comment: GAD7 was 12/PHQ9 was 6 Code(s): F41.9 - Anxiety disorder, unspecified Category: Medical Plan: The patient is currently on sertraline for anxiety management. The current dose will be maintained, and the patient's response will be reassessed in four weeks. (2) Hypertension: Comment: BP today was 126/82 Code(s): I10 - Essential (primary) hypertension Category: Medical Qualifiers: Hypertension type: primary hypertension Qualified Code(s): I10 - Essential (primary) hypertension Plan: The patient's hypertension is well-controlled. No changes in management are planned at this time. Patient will continue current medications. Will monitor. Patient will follow up in 6 months (3) Hypothyroidism: Comment: TSH was 0.05 Code(s): E03.9 - Hypothyroidism, unspecified Category: Medical Qualifiers: Hypothyroidism type: acquired Qualified Code(s): E03.9 - Hypothyroidism, unspecified Plan: The patient's thyroid medication dosage will be adjusted from 100 mcg to 88 mcg due to borderline thyroid levels. A follow-up appointment is scheduled in four weeks to reassess thyroid function. (4) Insomnia: Code(s): G47.00 - Insomnia, unspecified Category: Medical Plan: The patient reports insomnia, waking up at 2 AM regularly. The current management with sertraline will continue, and sleep patterns will be reassessed in the follow-up visit. (5) Chronic sinusitis: Code(s): J32.9 - Chronic sinusitis, unspecified Category: Medical Plan: The patient is currently managing chronic sinusitis with doxycycline and nasal spray. A follow-up appointment with ENT is scheduled for April 11, and a CT scan is planned pending insurance approval due to previous multiple scans. Plan During the visit, we discussed the management of chronic sinusitis, including the use of doxycycline and nasal spray, and the potential need for a CT scan pending insurance approval. We also addressed the patient's borderline hypothyroidism, deciding to adjust the thyroid medication dosage and plan a follow-up in four weeks. The patient's anxiety and insomnia were reviewed, with a decision to maintain the current sertraline dose and reassess in the next visit. Additionally, we confirmed that the patient's hypertension is well- controlled and requires no changes at this time. Orders: Orders TSH reflex Free T4 3 Weeks E03.9 - Hypothyroidism, unspecified Medications: New lorazepam 1 mg PO BID PRN 30 tabs 1RF anxiety levothyroxine (Levoxyl) Dosage adjustment 88 mcg PO DAILY 60 tabs 0RF for low thyroid Patient Instructions: - Continue taking doxycycline and nasal spray as prescribed for sinusitis. - Follow up with the surgeon on April 11 for sinusitis evaluation. - Adjust thyroid medication dosage to 88 mcg as directed. - Maintain current sertraline dose and monitor for changes in anxiety and sleep patterns. - Schedule a follow-up appointment in four weeks for reassessment. - Complete blood draw before the next appointment.
--- OUTSIDE RECORDS SUMMARY | 2025-03-15 20:38 | XMS_ITS | Data Portability ---
Author Organization [place] - [facility], Allergy Address [address] [address] Care Team Providers Care House Repairer Name Role Phone DONELL MOSLEY Primary Care Provider LARISSA ASHFORD Referring Provider Assessment Encounter Date Assessment Date Assessment LastModified by Organization Details LastModified Time 02/28/2025 02/28/2025 Tiffany Scott is a 64-year-old female with chronic nasal congestion, deviated septum, and sinus abnormalities. The patient has a history of chronic nasal congestion and sinus infections, with imaging demonstrating bilateral maxillary sinus thickening, a small cyst in the right maxillary sinus, and marked septal deviation to the right side. She has been receiving allergy injections for environmental allergens and uses Flonase nasal spray twice daily. The plan is to initiate a three-week course of antibiotics to address chronic sinus inflammation and infection. The patient will continue using Flonase nasal spray and saline rinses, including regular use of a neti pot, to manage nasal symptoms. A follow-up CT scan of the sinuses will be performed in March or April to evaluate the effectiveness of treatment and determine if surgical intervention is necessary. If significant sinus disease persists, surgical options may include opening the sinuses and correcting the deviated septum to improve breathing. FOLLOW-UP: The patient will undergo a follow-up CT scan of the sinuses in March or April. She will continue allergy injections at [facility] and maintain her current nasal spray regimen. Antibiotics will be prescribed and sent to [facility] on [facility]. [email or web address] Not available 02/28/2025 10:09:18 Plan of Treatment Reminders Order Date Submit Date Provider Last Modified By Organization Details Last Modified Time Details Appointments CT Scan 2024 03:30P M [facility] Not available Not available Not available Establish ed 15 2024 04:00P M NICHOLAS OJEDA MD Not available Not available Not available Lab None recorded. Referral None recorded. Procedures None recorded. Surgeries None recorded. Imaging CT, sinuses, w/o contrast 2024 [id number] [email or web address] Not available 02/28/2025 10:12:44 Medication Orders doxycycli ne hyclate 100 mg tablet 2024 [facility][id number], [address] [facility], [place], [address], 02/28/2025 10:11:49 Patient TargetsNo targets recorded. Patient Instructions Encounter Date Encounter Id Patient Instructions Last Modified By Organization Details Last Modified Time 02/28/2025 [id number] - Complete the prescribed three-week course of antibiotics. - Continue using Flonase nasal spray twice daily. - Perform regular nasal rinses with a neti pot. - Schedule and undergo a follow-up CT scan of the sinuses in March or April. - Maintain allergy injections at [facility]. - Take probiotics to prevent gastrointestinal upset or yeast infections while on antibiotics. chelle Not available 02/28/2025 10:09:18 Please note: Par ts of this encounter note have been generated by AI based on audio conversation. Patient consent was required prior to utilizing this technology. Content review was required prior to finalizing the note. chelle Not available 02/28/2025 10:09:18 Reason for Referral None Reported. Results Created Date Observation Date Name Description Value Unit Range Abnormal Flag Note LastModifiedBy Organization Detail LastModifiedTime 02/29/2004/21/2024 CT, sinus es, w/o contr ast No observ ation record ed. [email or web address] Not Available 10/2024 10:18:27 Result Notes None recorded. Problems Name Problem SNOMED Code Status Onset Date Resolution Date Notes Provider Name and Address Organization Details Recorded Time Deviated nasal septum 270419735 Active NICHOLAS OJEDA MD [address] [place] [address] EM[place] rose, [phone], [facility] - [facility] 10:07:35 Perennial allergic rhinitis 085682146 Active 025 NICHOLAS OJEDA MD [address] [address], [place], [address], [facility] 10:07:37 Chronic sinusitis 07910212 Active 025 NICHOLAS OJEDA MD [address] [address], [place], [address], [facility] 10:07:43 Problem Notes None recorded. Procedures Surgical History Date Name Laterality Status Provider Name and Address Organization Details Recorded Time JMSNasal/Sinus Endoscopy completed NICHOLAS ORTEGA MD [address] [address], [place], [address], [facility] 02/28/2025 10:07:06 Imaging Results None recorded. Procedure Notes None recorded. Medical Equipment None Reported. Allergies Allergen ID Allergen Name Allergen Category Reaction Reaction Severity Criticality Documentation Date Start Date Code Code System Note Provider Name and Address Organization Details Recorded Time 882195 Tylenol-C odeine medicatio n Not available Not available Not available 02/28/2025 Courtney schwartz MA [facility] 09:49:49 362383 latex environme nt,medica tion Not available Not available Not available 02/28/2025 66299 91 RxNorm Courtney schwartz MA [facility] 09:49:56 Medications Name Sig Start Date Stop Date Status Note LastModified by Organization Details LastModified Time ibuprofen 800 mg tablet TAKE 1 EVERY 12 HOURS NEEDED FOR PAIN active Not Available Not Available No t Available hydrocortis one valerate 0.2 % topical cream APPLY TO AFFECTED AREA TWICE A DAY NEEDED 02/28 completed Not Available Not Available Not Available lisinopril 20 mg tablet TAKE 1 TABLET BY MOUTH EVERY DAY active Not Available Not Available No t Available prednisone 20 mg tablet TAKE 1 TABLET BY MOUTH EVERY MORNING FOR 5 DAYS 02/28 completed Not Available Not Available Not Available levothyroxi ne 100 mcg tablet TAKE 1 TABLET BY MOUTH DAILY 1/2 HOUR BEFORE BREAKFAST active Not Available Not Available No t Available sertraline 25 mg tablet TAKE 1 TABLET BY MOUTH DAILY AT BEDTIME active Not Available Not Available No t Available lorazepam 1 mg tablet TAKE 1 TABLET BY MOUTH TWICE A DAY NEEDED active Not Available Not Available No t Available fluticasone propionate 50 mcg/actuati on nasal spray,suspe nsion USE 1 SPRAY IN EACH NOSTRIL TWICE A DAY active Not Available Not Available No t Available doxycycline hyclate 100 mg tablet TAKE 1 TABLET BY MOUTH TWICE A DAY FOR 20 DAYS active Not Available Not Available No t Available Vitals Date Recorded Body height Body mass index (BMI) Body weight Provider Name and Address Organization Details Last Updated DateTime 02/28/2025 167.64 cm 25.8 kg/m2 54833.78 g Courtney Wagoner [place] - [facility] 02/28/2025 09:50:53 Social History None recorded. Functional Status None recorded. Mental Status None recorded. Family History Nothing Reported. Medical History Condition Response Arthritis Y Anxiety Y Thyroid Problems Y Hypertension Y Depression Y Gynecological HistoryNo gynecological history recorded. Obstetrics History GPAL:G 0 P 0 0 0 0 Past Encounters Encounter ID Performer Location Encounter Start Date Encounter Closed Date Diagnosis/Indication Diagnosis SNOMED-CT Code Diagnosis ICD10 Code Diagnosis IMO Codes Diagnosis Note [id number] NICHOLAS ALCARAZ MD [facility] [address] [address] 02/28/2025 09:31:13 02/28/2025 10:12:44 Deviated nasal septum 814050340 J34.2 93667 Perennial allergic rhinitis 385279199 J30.89 511471 Chronic sinusitis 228050 00 J32.8 38827 Health Concerns Section Related Observation LastModified by Organization Detai ls LastModified Time None Recorded Concern Status LastModified by Organization Details LastModified Time None Recorded Advance Directives Directive None Recorded Payers Insurance Date Sequence Insurance Name Policy Number Policy Medley Covered Member ID Medley Member ID Guarantor Name 02/28/2025 1 [facility] [id number] Tiffany Scott [id number] Tiffany Scott Notes Date Note Type Note Provider Name and Address Organization Details Recorded Time 02/28/2025 text/html ROS as noted in the HPI Tiffany Scott is a 64-year-old female who presents for evaluation of chronic nasal congestion and sinus issues. She reports experiencing nasal congestion and difficulty clearing mucus from her nose since approximately 2016 or 2017. She describes a sensation of mucus receding back into her nasal passages when attempting to clear it. She has undergone allergy testing and is allergic to environmental allergens. She has been receiving allergy injections for several years, starting with weekly injections for one year, then biweekly injections, and currently receiving maintenance injections every three weeks. She has a history of sinus infections and underwent a CT scan in 2016 and another in 2023, which demonstrated sinus abnormalities. She reports hearing loss, which she attributes to her sinus issues, although she does not have persistent fluid in her ears. She uses Flonase nasal spray twice daily and occasionally performs nasal rinses with a neti pot. She denies being technologically proficient and prefers to continue her allergy injections at [facility] for convenience. [id number] NICHOLAS ORTEGA MD [address] [place] [address], [place], [address], [facility] - [facility] 02/28/2025 10:11:39 OBGyn Episode No OBEpisode recorded.
--- OUTSIDE RECORDS SUMMARY | 2025-03-15 20:39 | XMS_ITS | Patient Health Record ---
Author Organization [facility] Address [address] [place] [address] Care Team Providers Care Professor Of Astronomy Name Role Phone Dwayne Velazquez MD Primary Care Provider Unavailab Uzair Owens Unavailable [phone] Allergies Allergen (clinical drug ingredient) Drug/Non Drug [...] W/U Status Risk Notes Problem Plantar wart (11495285) Plantar wart (B07.0) Active confirmed Plan Of Treatment Pending Test Test Name Order Date [id number] Destruction, -08/09/2014 [id number] Destruction, 06-0812/26/2015 Insurance Providers Payer Name Payer Address Payer Phone Subscriber Number Group Number Insured Name Patient Relationship to Insured Coverage Start Date Coverage End Date [facility] [address] [facility] [place] [address] [id number] Tiffany Scott Self - patient is the insured Medical (General) History Medical History History ICD Code Anxiety Measles Hypertension Sinus conditions Thyroid disorder
== END 2025-03-15 16:19 | disposition home or self-care (01) ==
LOC: HO.HMCHD 15:40
PROVIDERS: PCP Physician Assistant Medical; Visit Provider Physician Assistant Medical
DX: F41.9 Anxiety disorder, unspecified (principal); I10 Essential (primary) hypertension; E03.9 Hypothyroidism, unspecified; G47.00 Insomnia, unspecified; J32.9 Chronic sinusitis, unspecified

== ENCOUNTER → 2025-03-15 15:39 | Outpatient (BNVA) | payer OTHER, SELFPAY | PROVIDERS: PCP Physician Assistant Medical; Visit Provider Physician Assistant Medical | DX: F41.9 Anxiety disorder, unspecified (principal); I10 Essential (primary) hypertension; E03.9 Hypothyroidism, unspecified; G47.00 Insomnia, unspecified; J32.9 Chronic sinusitis, unspecified; Z13.31 Encounter for screening for depression; Z13.39 Encounter for screening examination for other mental health and behavioral disorders | CPT/HCPCS: 96127 ==

== ENCOUNTER 2025-03-21 11:46 | Outpatient (AMB) | payer OTHER, SELFPAY ==
--- OUTSIDE RECORDS SUMMARY | 2025-03-21 15:12 | XMS_ITS | Data Portability ---
Author Organization [place] - [facility], Allergy Address [address] [address] Care Team Providers Care Security Door Installer Name Role Phone DONELL MOSLEY Primary Care Provider [phone] LARISSA ASHFORD Referring Provider [phone] Assessment Encounter Date Assessment Date Assessment LastModified [...] April. She will continue allergy injections at [facility] and maintain her current nasal spray regimen. Antibiotics will be prescribed and sent to [facility] on [facility]. [email or web address] Not available 02/28/2025 10:09:18 Plan [...] doxycycli ne hyclate 100 mg tablet 2024 [facility]/Pharmacy #[id number], [address] [facility], [place], [address], 02/28/2025 10:11:49 Patient TargetsNo targets recorded. Patient Instructions Encounter Date Encounter Id Patient Instructions Last Modified By Organization Details Last Modified Time 02/28/2025 [id number] - Complete the prescribed three-week course of antibiotics. - Continue using Flonase nasal spray twice daily. - Perform regular nasal rinses with a neti pot. - Schedule and undergo a follow-up CT scan of the sinuses in March or April. - Maintain allergy injections at [facility]. - Take probiotics to prevent gastrointestinal [...] contr ast No observ ation record ed. [email or web address] Not Available 10/2024 10:18:27 Result Notes None recorded. Problems Name Problem SNOMED Code Status Onset Date Resolution Date Notes Provider Name and Address Organization Details Recorded Time Deviated nasal septum 209597733 Active NICHOLAS OJEDA MD [address] [place] [address] EM[place] rose, [address], [facility] - [facility] 10:07:35 Perennial allergic rhinitis 053184298 Active 025 NICHOLAS OJEDA MD [address] [address], [place], [address], [facility] 10:07:37 Chronic sinusitis 06731085 Active 025 NICHOLAS OJEDA MD [address] [address], [place], [address], [facility] 10:07:43 Problem Notes None recorded. Procedures Surgical History Date Name Laterality Status Provider Name and Address Organization Details Recorded Time JMSNasal/Sinus Endoscopy completed NICHOLAS ORTEGA MD [address] [address], [place], [address], [facility] 02/28/2025 10:07:06 Imaging Results None recorded. Procedure Notes None recorded. Medical Equipment None Reported. Allergies Allergen ID Allergen Name Allergen Category Reaction Reaction Severity Criticality Documentation Date Start Date Code Code System Note Provider Name and Address Organization Details Recorded Time 503596 Tylenol-C odeine medicatio n Not available Not available Not available 02/28/2025 Courtney schwartz [place] [facility] 09:49:49 728790 latex environme nt,medica tion Not available Not available Not available 02/28/2025 12099 91 RxNorm Courtney schwartz [place] [facility] 09:49:56 Medications Name Sig Start Date Stop [...] Not Available Not Available No t Available levothyroxi ne 88 mcg tablet TAKE 1 TABLET BY MOUTH DAILY FOR FOR LOW THYROID. DOSAGE ADJUSTMEN T active Not Available Not Available No t [...] Updated DateTime 02/28/2025 167.64 cm 25.8 kg/m2 73873.78 g Courtney Wagoner [place] - [facility] 02/28/2025 09:50:53 Social History None recorded. Functional [...] ICD10 Code Diagnosis IMO Codes Diagnosis Note [id number] NICHOLAS ALCARAZ MD [facility] of [address] [address] 02/28/2025 09:31:13 02/28/2025 10:12:44 Deviated nasal septum 579903356 J34.2 41049 Perennial allergic rhinitis 535407684 J30.89 954439 Chronic sinusitis 985742 00 J32.8 70476 Health Concerns Section Related Observation LastModified by Organization Detai ls LastModified Time None Recorded Concern Status LastModified by Organization Details LastModified Time None Recorded Advance Directives Directive None Recorded Payers Insurance Date Sequence Insurance Name Policy Number Policy Medley Covered Member ID Medley Member ID Guarantor Name 02/28/2025 1 [facility] [id number] 1 Tiffany Scott [id number] Tiffany Scott Notes Date Note Type Note [...] prefers to continue her allergy injections at [facility] for convenience. NOSE=[id number] NICHOLAS ORTEGA MD [address] [place] [address], [address], [place] - [facility] 02/28/2025 10:11:39 OBGyn Episode No OBEpisode recorded.
--- OUTSIDE RECORDS SUMMARY | 2025-03-21 15:12 | XMS_ITS | Patient Health Record ---
Author Organization [facility] Address [address] [place] [address] Care Team Providers Care Concrete Handler Name Role Phone Dwayne Velazquez MD Primary Care Provider Unavailab Uzair Owens Unavailable [phone] Allergies Allergen (clinical drug ingredient) Drug/Non Drug [...] W/U Status Risk Notes Problem Plantar wart (37268956) Plantar wart (B07.0) Active confirmed Plan Of Treatment Pending Test Test Name Order Date 71252-Denh Destruction, -08/09/2014 13908-Bbff Destruction, 06-0812/26/2015 Insurance Providers Payer Name Payer Address Payer Phone Subscriber Number Group Number Insured Name Patient Relationship to Insured Coverage Start Date Coverage End Date [facility] [address] [place] [address] [id number] Tiffany Scott Self - patient is the insured Medical (General) History Medical History History ICD Code Anxiety Measles Hypertension Sinus conditions Thyroid disorder
== END 2025-03-21 11:47 | disposition home or self-care (01) ==
LOC: HO.HMGAL 11:46
PROVIDERS: PCP Physician Assistant Medical; Visit Provider Registered Nurse Emergency
DX: J30.89 Other allergic rhinitis (principal)
CPT/HCPCS: 95117; 95165

== ENCOUNTER 2025-04-04 08:18 | Outpatient (REF) | payer OTHER, SELFPAY ==
--- OUTSIDE RECORDS SUMMARY | 2025-04-04 08:40 | XMS_ITS | Data Portability ---
Author Organization [place] - [facility], Allergy Address [address] [address] Care Team Providers Care Outpatient Phlebotomist Name Role Phone DONELL MOSLEY Primary Care [...] April. She will continue allergy injections at [facility] and maintain her current nasal spray regimen. Antibiotics will be prescribed and sent to [facility] on [facility]. [email or web address] Not available 02/28/2025 10:09:18 Plan [...] doxycycli ne hyclate 100 mg tablet 2024 [facility]/Pharmacy #[id number], [address] [facility], [place], [address], 03/27/2025 05:02:20 Patient TargetsNo targets recorded. Patient Instructions Encounter Date Encounter Id Patient Instructions Last Modified By Organization Details Last Modified Time 02/28/2025 [id number] - Complete the prescribed three-week course of antibiotics. - Continue using Flonase nasal spray twice daily. - Perform regular nasal rinses with a neti pot. - Schedule and undergo a follow-up CT scan of the sinuses in March or April. - Maintain allergy injections at [facility]. - Take probiotics to prevent gastrointestinal upset [...] contr ast No observ ation record ed. [email or web address] Not Available 10/2024 10:18:27 Result Notes None recorded. Problems Name Problem SNOMED Code Status Onset Date Resolution Date Notes Provider Name and Address Organization Details Recorded Time Deviated nasal septum 245945809 Active NICHOLAS OJEDA MD [address] [place] [address] [place], [address], [facility] - [facility] 10:07:35 Perennial allergic rhinitis 846204404 Active 025 NICHOLAS OJEDA MD [address] [address], [place], [address], [facility] 10:07:37 Chronic sinusitis 31807660 Active 025 NICHOLAS OJEDA MD [address] [address], [place], [address], [facility] 10:07:43 Problem Notes None recorded. Procedures Surgical History Date Name Laterality Status Provider Name and Address Organization Details Recorded Time JMSNasal/Sinus Endoscopy completed NICHOLAS ORTEGA MD [address] [address], [place], [address], [facility] 02/28/2025 10:07:06 Imaging Results None recorded. Procedure Notes None recorded. Medical Equipment None Reported. Allergies Allergen ID Allergen Name Allergen Category Reaction Reaction Severity Criticality Documentation Date Start Date Code Code System Note Provider Name and Address Organization Details Recorded Time 845421 Tylenol-C odeine medicatio n Not available Not available Not available 02/28/2025 Courtney schwartz [place] [facility] 09:49:49 899553 latex environme nt,medica tion Not available Not available Not available 02/28/2025 32458 91 RxNorm Courtney schwartz [place] [facility] 09:49:56 Medications Name Sig Start Date Stop [...] t Available doxycycline hyclate 100 mg tablet Take 1 tablet twice a day by oral route for 20 days. 03/27 completed Not Available Not Available Not Available Vitals Date Recorded Body height Body mass index (BMI) Body weight Provider Name and Address Organization Details Last Updated DateTime 02/28/2025 167.64 cm 25.8 kg/m2 59020.78 g Courtney Wagoner [place] - [facility] 02/28/2025 09:50:53 Social History None recorded. Functional [...] ICD10 Code Diagnosis IMO Codes Diagnosis Note [id number] NIHCOLAS ALCARAZ MD [facility] of [address] [address] 02/28/2025 09:31:13 02/28/2025 10:12:44 Deviated nasal septum 294122497 J34.2 03900 Perennial allergic rhinitis 399712730 J30.89 724901 Chronic sinusitis 391638 00 J32.8 95790 Health Concerns Section Related Observation LastModified by Organization Detai ls LastModified Time None Recorded Concern Status LastModified by Organization Details LastModified Time None Recorded Advance Directives Directive None Recorded Payers Insurance Date Sequence Insurance Name Policy Number Policy Medley Covered Member ID Medley Member ID Guarantor Name 02/28/2025 1 [facility] [id number] 1 Tiffany Scott [id number] Tiffany Beanine Scott Notes Date Note Type Note Provider [...] prefers to continue her allergy injections at [facility] for convenience. NOSE=[id number] NICHOLAS ORTEGA MD [address] [place] [address], [place], [address], [facility] - [facility] 02/28/2025 10:11:39 OBGyn Episode No OBEpisode recorded.
--- OUTSIDE RECORDS SUMMARY | 2025-04-04 08:40 | XMS_ITS | Patient Health Record ---
Author Organization [facility] Address [address] [place] [address] Care Team Providers Care Pack Train Driver Name Role Phone Dwayne Velazquez MD Primary Care Provider Unavailab Uzair Owens Unavailable [phone] Allergies Allergen (clinical drug ingredient) Drug/Non Drug [...] W/U Status Risk Notes Problem Plantar wart (39227920) Plantar wart (B07.0) Active confirmed Plan Of Treatment Pending Test Test Name Order Date 42251-Qcdp Destruction, -08/09/2014 64710-Sgaq Destruction, 06-0812/26/2015 Insurance Providers Payer Name Payer Address Payer Phone Subscriber Number Group Number Insured Name Patient Relationship to Insured Coverage Start Date Coverage End Date [facility] [address] [place] [address] [id number] Tiffany Scott Self - patient is the insured Medical (General) History Medical History History ICD Code Anxiety Measles Hypertension Sinus conditions Thyroid disorder
--- OUTSIDE RECORDS SUMMARY | 2025-04-04 08:41 | XMS_ITS | Continuity of Care Document ---
Author Organization [place] - [facility], [facility] Address [address] [place] [address] Care Team Providers Care Airport Maintenance Laborer Name Role Phone DONELL MOSLEY Primary Care Provider LARISSA ASHFORD Referring Provider [phone] Assessment Encounter Date Assessment Date Assessment LastModified [...] April. She will continue allergy injections at [facility] and maintain her current nasal spray regimen. Antibiotics will be prescribed and sent to [facility]. [email or web address] Not available 02/28/2025 10:09:18 Plan of Treatment [...] doxycycli ne hyclate 100 mg tablet 2024 [facility]/Pharmacy #[id number], [address] [facility], [place], [address], 03/27/2025 05:02:20 Patient TargetsNo targets recorded. Patient Instructions Encounter Date Encounter Id Patient Instructions Last Modified By Organization Details Last Modified Time 02/28/2025 [id number] - Complete the prescribed three-week course of antibiotics. - Continue using Flonase nasal spray twice daily. - Perform regular nasal rinses with a neti pot. - Schedule and undergo a follow-up CT scan of the sinuses in March or April. - Maintain allergy injections at [facility]. - Take probiotics to prevent gastrointestinal [...] contr ast No observ ation record ed. [email or web address] Not Available 10/2024 10:18:27 Result Notes None recorded. Problems Name Problem SNOMED Code Status Onset Date Resolution Date Notes Provider Name and Address Organization Details Recorded Time Deviated nasal septum 504434676 Active NICHOLAS OJEDA MD [address] [place] [address] [place], [address], [facility] 10:07:35 Perennial allergic rhinitis 660103280 Active 025 NICHOLAS OJEDA MD [address] [address], [place], [address], [facility] 10:07:37 Chronic sinusitis 46161314 Active 025 NICHOLAS OJEDA MD [address] [address], [place], [address], [facility] 10:07:43 Problem Notes None recorded. Procedures Surgical History Date Name Laterality Status Provider Name and Address Organization Details Recorded Time JMSNasal/Sinus Endoscopy completed NICHOLAS ORTEGA MD [address], [address], [facility] 02/28/2025 10:07:06 Imaging Results None recorded. Procedure Notes None recorded. Medical Equipment None Reported. Allergies Allergen ID Allergen Name Allergen Category Reaction Reaction Severity Criticality Documentation Date Start Date Code Code System Note Provider Name and Address Organization Details Recorded Time 995964 Tylenol-C odeine medicatio n Not available Not available Not available 02/28/2025 Courtney schwartz [place] [facility] 09:49:49 997707 latex environme nt,medica tion Not available Not available Not available 02/28/2025 40110 91 RxNorm Courtney schwartz [place] [facility] 09:49:56 Medications Name Sig Start Date [...] Updated DateTime 02/28/2025 167.64 cm 25.8 kg/m2 91070.78 g Courtney Wagoner [place] - [facility] 02/28/2025 09:50:53 Social History None recorded. [...] ICD10 Code Diagnosis IMO Codes Diagnosis Note [id number] NICHOLAS ALCARAZ MD [facility] [address] [address] 02/28/2025 09:31:13 02/28/2025 10:12:44 Deviated nasal septum 571038891 J34.2 88483 Perennial allergic rhinitis 855441324 J30.89 283590 Chronic sinusitis 142936 00 J32.8 19613 Health Concerns Section Related Observation LastModified by Organization Detai ls LastModified Time None Recorded Concern Status LastModified by Organization Details LastModified Time None Recorded Payers Encounter Date Sequence Insurance Name Policy Number Policy Medley Covered Member ID Medley Member ID Guarantor Name 02/28/2025 1 [facility] [id number] 1 Tiffany Scott [id number] Tiffany Millicent Scott Notes Date Note Type Note Provider Name and Address Organization Details Recorded Time 02/28/2025 text/html ROS as noted in the HPI Tiffany Scott is a 64-year-old female who presents for evaluation of chronic nasal congestion and sinus issues. She reports experiencing nasal congestion and difficulty clearing mucus from her nose since approximately 2016 or 2016. She describes a sensation of mucus receding [...] prefers to continue her allergy injections at [facility] for convenience. NOSE=[id number] NICHOLAS ORTEGA MD [address] [place] [address], [address], [facility] - [facility] 02/28/2025 10:11:39 OBGyn Episode No OBEpisode recorded.
[2025-04-04 12:23] LABS: Free T4 (Free Thyroxine) 0.97 ng/dL (0.71-1.85)
== END 2025-04-04 08:19 | disposition home or self-care (01) ==
LOC: HO.10HDL 08:18
PROVIDERS: Visit Provider Physician Assistant Medical
DX: E03.9 Hypothyroidism, unspecified (principal)
CPT/HCPCS: 36415; 84439; 84443

== ENCOUNTER 2025-04-07 16:10 | Outpatient (AMB) | payer OTHER, SELFPAY ==
[2025-04-07 15:27] VITALS: BP 130/82; PULSE 71; TEMP 36.8; O2SAT 98; BMI 26.6
--- NOTE | 2025-04-07 15:27 | A.OFFPC_ITS ---
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: No Accompanied by: Self / Same As Patient Allergies acetaminophen (Tylenol-Codeine #3) Allergy (Unknown, Verified 04/07/25 15:28) Unknown codeine (Tylenol-Codeine #3) Allergy (Unknown, Verified 04/07/25 15:28) Unknown diphenhydramine (Benadryl) Allergy (Unknown, Verified 04/07/25 15:28) Unknown latex (LATEX) Adverse Reaction (Unknown, Verified 04/07/25 15:28) UNKNOWN ENVIRONMENTAL Adverse Reaction (Unknown, Uncoded 02/10/20 17:12) UNKNOWN SEASONAL ALLERGIES Adverse Reaction (Unknown, Uncoded 02/10/20 17:12) UNKNOWN Medication List - Last Reconciled 04/24/25 by DANIELLE Weber ibuprofen 800 mg PO Q12H PRN levothyroxine 88 mcg PO DAILY lisinopril 20 mg PO DAILY lorazepam 1 mg PO BID PRN sertraline 25 mg PO DAILY Tobacco use date assessed: 04/07/25 Dental Screening Dental Screen Date: 04/07/25 Did you have a dental visit in the last 12 months?: Yes Did you have a dental problem in the last 6 months where you did not have access to dental care?: No HPI HPI Comments History of Present Illness Details The patient is a 64-year-old female with HTN, Hypothyroidism, anxiety, insomnia and joint pain presenting for a follow-up visit for hypothyroidism and to review recent lab results. Her thyroid function is improving but not yet within the normal range. She has not experienced any new symptoms with medication ad justments but does not want to increase the current dose. The patient has chronic sinus issues, describing them as inflamed with a deviated septum. She has a CT scan scheduled for Friday and anticipates needing surgery. She also reports a history of nasal trauma from a fall years ago, which resulted in a bump on her nose. The patient reports a change in her vision and was diagnosed with the onset of cataracts during an ophthalmology appointment in August. There is a family history of cataracts. She describes having lifelong difficulty with sleep, characterized by waking in the middle of the night with racing thoughts. She has gained some weight since her last visit, which she attributes to a decrease in her daily walking routine during the winter months. She experienced an adverse reaction to a recent course of an unspecified antibiotic, which she felt was like an allergic reaction without typical symptoms. Medical History: - Hypothyroidism - Chronic sinusitis with deviated nasal septum - History of nasal trauma - Onset of cataracts - Chronic insomnia - Adverse drug reaction to an unspecifie d antibiotic Patient was informed and verbally consented to the use of an ambient scribe for clinic note documentation during this visit. [facility] Medical History (Updated 04/18/25 @ 17:47 by DANIELLE Weber) Anxiety Cataract Chronic sinusitis Hypertension Hypothyroidism Insomnia Joint pain Family History Mother No problems noted. Father No problems noted. Social History Housing: House Patient Tobacco Use Status: Former Tobacco user e-Cigarette/Vaping Use: Former Use service: No Current occupational status: employed Cognitive needs: No Hearing needs: No Vision needs: Yes (reading glasses) Questionnaire PHQ-9 Over the last 2 weeks, how often have you been bothered by any of the following problems? 1. Little interest or pleasure in doing things: not at all 2. Feeling down, depressed, or hopeless: nearly every day 3. Trouble falling or staying asleep, or sleeping too much: nearly every day (trouble falling asleep) 4. Feeling tired or having little energy: not at all 5. Poor appetite or overeating: nearly every day (overeating) 6. Feeling bad about yourself - or that you are a failure or have let yourself or your family down: not at all Depression Screening Interpretation: Positive Depression Screening Done: Yes Source: Developed by Drs. Kenton Herrmann, Carmella Mccloud, Mingo Valle and colleagues, with an educational marlyn from [employer]. Thrive Questionnaire Date Thrive assessed: 04/07/25 I am a: Patient Within the past 12 months, did the food you bought not last and you didn't have the money to get more?: Never true Within the past 12 months, did you worry whether your food would run out before you got money to buy more?: Never true Do you have trouble paying for medicines?: No Do you have trouble getting transportation to medical appointments?: No Do you have trouble paying your heating and electricity bill?: No Do you have trouble taking care of your child, family member or friend?: No Do you have trouble with day-to-day activities such as bathing, preparing meals, shopping, managing finances, etc.?: No Are you currently unemployed and looking for a job?: No Are you interested in more education?: No THRIVE Score: 0 AUDIT C Alcohol Use Questionnaire (AUDIT-C) 1. How often do you have a drink containing alcohol?: Monthly or less 2. How many drinks containing alcohol do you have on a typical day when you are drinking?: 1 or 2 3. How often do you have six or more drinks on one occasion?: Less than monthly Total Score: 2 SHERI-7 AMB Questionnaire SHERI-7 Date SHERI - 7 assessed: 04/07/25 Feeling nervous, anxious, or on edge: 3 = Nearly every day Not being able to stop or control worryin = Not at all Worrying too much about different things: 0 = Not at all Trouble relaxin = Not at all Being so restless that it is hard to sit still: 0 = Not at all Becoming easily annoyed or irritable: 0 = Not at all Feeling afraid as if something awful might happen: 0 = Not at all Total SHERI-7 score (0-4 normal; 5-9 mild; 10-14 moderate; 15-21 severe): 3 Source: Developed by Drs. Kenton Herrmann, Carmella Mccloud, Mingo Valle and colleagues, with an educational marlyn from [employer]. Review of Systems Narrative - Constitutional: Reports recent weight gain. - Eyes: Reports changes in vision and was diagnosed with onset of cataracts. - Ear, Nose, Throat: Reports sinus inflammation and a bump on her nose. - Psychiatric: Reports being a hyper person with racing thoughts at night. - Neurological: Reports chronic sleep maintenance insomnia and memory issues that are worsening with age. - Allergic/Immunologic: Reports a suspected allergic reaction to an unspecified antibiotic. Physical exam (Primary Care) Vital Signs: Last Vital Signs Temp 98.2 F 04/07/25 15:27 Pulse 71 04/07/25 15:27 BP 130/82 04/07/25 15:27 Pulse Ox 98 04/07/25 15:27 Oxygen Delivery Method Room Air 04/07/25 15:27 BMI result Body Mass Index 26.6 GENERAL Well developed, Well nourished, in no apparent distress HEENT Head-Normocephalic Eyes- PERRLA, EOMI, Conjuctiva clear, lids WNL Ears- Canals clear, TMs WNL Mouth/Throat-No lesions, no erythema, no exudate Neck- Supple, No lymphadenopathy, thyroid WNL RESPIRATORY Normal I:E, Clear to auscultation CARDIOVASCULAR Regular, rate and rhythm, No murmurs or rubs GASTROINTESTINAL Soft, nontender, normal bowel sounds, no masses MUSCULOSKELETAL Back- nontender Joints- no swelling or deformity NEUROLOGICAL Gait normal PSYCHIATRIC Oriented to person, place and time Mood and affect WNL Appearance WNL Speech WNL Thought processes WNL Tobacco/Smoking Status: Tobacco use Status Tobacco use date assessed 04/07/25 04/07/25 15:31 Patient Tobacco Use Status Former Tobacco user 04/07/25 15:31 e-Cigarette/Vaping Use Former Use 04/07/25 15:31 Depression Screening Interpretation: Positive Thrive Assessment: Date of Thrive Assessment Date Thrive assessed 04/07/25 04/07/25 15:31 Results Reviewed Results Reviewed: - Labs: Recent thyroid labs are improved but not yet normal. - Tests and Diagnostics: Recent ophthalmology exam revealed onset of cataracts. Coding Level of Care Code Established Pt Complex visit Add On G2211 Patient Type Established Diagnoses Acquired hypothyroidism E03.9 Hypothyroidism type: acquired Chronic sinusitis J32.9 Cataract H26.9 Time Spent (min) 30 Comment Time was spent on lab review, H&P, patient education, orders. Assessment & Plan Assessment & Plan (1) Hypothyroidism: Comment: TSH was 0.05 Code(s): E03.9 - Hypothyroidism, unspecified Category: Medical Qualifiers: Hypothyroidism type: acquired Qualified Code(s): E03.9 - Hypothyroidism, unspecified Plan: The patient's recent lab work indicates her thyroid function is improving, though not yet within the normal range. She reports no symptoms with the current medication dose and wishes to remain on it without increase. The plan is to continue the current thyroid medication without any changes. An order will be placed for repeat blood work to be done prior to the next follow-up appointment. (2) Chronic sinusitis: Code(s): J32.9 - Chronic sinusitis, unspecified Category: Medical Plan: The patient has a scheduled CT scan of the sinuses to evaluate her chronic sinus issues and deviated septum. She has an appointment with her ENT specialist to discuss the results and potential for surgical intervention. (3) Cataract: Code(s): H26.9 - Unspecified cataract Category: Medical Plan: The patient was recently diagnosed with the onset of cataracts by her o phthalmologist after reporting vision changes. She will continue to follow up with her eye doctor. Plan I reviewed the patient's recent lab work, noting that her thyroid function is improving but not yet normal. We agreed to continue her current thyroid medication dose without any changes, as she is not experiencing side effects and does not wish to increase it. I placed an order for her to have blood work done a couple of weeks before her next follow-up appointment. We scheduled a follow- up visit in three months' time. Orders: Orders TSH reflex Free T4 04/07/25 E03.9 - Hypothyroidism, unspecified Patient Instructions: - Continue taking all of your current medications at the same doses. We will not be making any changes today. - An order has been placed for blood work. Please have this done a couple of weeks before your next appointment. - Please proceed with your scheduled CT scan of the sinuses and follow up with your specialist. - Schedule a follow-up appointment at the front end alignment specialist for three months from now.
--- OUTSIDE RECORDS SUMMARY | 2025-04-07 18:48 | XMS_ITS | Continuity of Care Document ---
Author Organization [place] - [facility], [facility] Address [address] [place] [address] Care Team Providers Care Certified Residential Medication Aide Name Role Phone DONELL MOSLEY Primary Care Provider LARISSA ASHFORD Referring Provider [phone] Assessment Encounter Date Assessment Date Assessment LastModified [...] April. She will continue allergy injections at [facility] and maintain her current nasal spray regimen. Antibiotics will be prescribed and sent to [facility] on [facility]. [email or web address] Not available 02/28/2025 10:09:18 Plan of [...] doxycycli ne hyclate 100 mg tablet [address] [facility]/Pharmacy #[id number], [address] [facility], [place], [address], 03/27/2025 05:02:20 Patient TargetsNo targets recorded. Patient Instructions Encounter Date Encounter Id Patient Instructions Last Modified By Organization Details Last Modified Time 02/28/2025 [id number] - Complete the prescribed three-week course of antibiotics. - Continue using Flonase nasal spray twice daily. - Perform regular nasal rinses with a neti pot. - Schedule and undergo a follow-up CT scan of the sinuses in March or April. - Maintain allergy injections at [facility]. - Take probiotics to prevent gastrointestinal [...] contr ast No observ ation record ed. Not Available 10/2024 10:18:27 Result Notes None recorded. Problems Name Problem SNOMED Code Status Onset Date Resolution Date Notes Provider Name and Address Organization Details Recorded Time Deviated nasal septum 335112708 Active NICHOLAS OJEDA MD [address] [place] [address] [place], [phone], [facility] 10:07:35 Perennial allergic rhinitis 348182166 Active 025 NICHOLAS OJEDA MD [address] [address], [place], [address], [facility] 10:07:37 Chronic sinusitis 38901335 Active 025 NICHOLAS OJEDA MD [address] [address], [place], [address], [facility] 10:07:43 Problem Notes None recorded. Procedures Surgical History Date Name Laterality Status Provider Name and Address Organization Details Recorded Time JMSNasal/Sinus Endoscopy completed NICHOLAS ORTEGA MD [address], [address], [facility] 02/28/2025 10:07:06 Imaging Results None recorded. Procedure Notes None recorded. Medical Equipment None Reported. Allergies Allergen ID Allergen Name Allergen Category Reaction Reaction Severity Criticality Documentation Date Start Date Code Code System Note Provider Name and Address Organization Details Recorded Time 426061 Tylenol-C odeine medicatio n Not available Not available Not available 02/28/2025 Courtney schwartz [place] [facility] 09:49:49 382317 latex environme nt,medica tion Not available Not available Not available 02/28/2025 16626 91 RxNorm Courtney schwatrz [place] [facility] 09:49:56 Medications Name Sig Start Date [...] Updated DateTime 02/28/2025 167.64 cm 25.8 kg/m2 05051.78 g Courtney Wagoner [place] - [facility] 02/28/2025 09:50:53 Social History None recorded. Functional Status None recorded. Mental Status None recorded. Family History Nothing Reported. Medical History Condition Response Depression Y Arthritis Y Anxiety Y Thyroid Problems Y Hypertension Y Gynecological HistoryNo gynecological history recorded. Obstetrics History GPAL:G 0 P 0 0 0 0 Past Encounters Encounter ID Performer Location Encounter Start Date Encounter Closed Date Diagnosis/Indication Diagnosis SNOMED-CT Code Diagnosis ICD10 Code Diagnosis IMO Codes Diagnosis Note [id number] NICHOLAS ALCARAZ MD [facility] [address] [address] 02/28/2025 09:31:13 02/28/2025 10:12:44 Deviated nasal septum 754153717 J34.2 97818 Perennial allergic rhinitis 125982849 J30.89 503101 Chronic sinusitis 528898 00 J32.8 90986 Health Concerns Section Related Observation LastModified by Organization Detai ls LastModified Time None Recorded Concern Status LastModified by Organization Details LastModified Time None Recorded Payers Encounter Date Sequence Insurance Name Policy Number Policy Medley Covered Member ID Medley Member ID Guarantor Name 02/28/2025 1 [facility] [id number] 1 Tiffany Scott [id number] Tiffany Millicent Scott Notes Date Note Type [...] prefers to continue her allergy injections at [facility] for convenience. NOSE=[id number] NICHOLAS ORTEGA MD [address] [place] [address], [phone], [facility] - [facility] 02/28/2025 10:11:39 OBGyn Episode No OBEpisode recorded.
--- OUTSIDE RECORDS SUMMARY | 2025-04-07 18:48 | XMS_ITS | Patient Health Record ---
Author Organization [facility] Address [address] [place] [address] Care Team Providers Care Weeder Name Role Phone Dwayne Velazquez MD Primary Care Provider Unavailab Uzair Owens Unavailable [phone] Allergies Allergen (clinical drug ingredient) Drug/Non Drug [...] W/U Status Risk Notes Problem Plantar wart (78789581) Plantar wart (B07.0) Active confirmed Plan Of Treatment Pending Test Test Name Order Date [id number] Destruction, -08/09/2014 [id number] Destruction, 06-0812/26/2015 Insurance Providers Payer Name Payer Address Payer Phone Subscriber Number Group Number Insured Name Patient Relationship to Insured Coverage Start Date Coverage End Date [facility] [address] [place] [address] [phone] [id number] Tiffany Scott Self - patient is the insured Medical (General) History Medical History History ICD Code Anxiety Measles Hypertension Sinus conditions Thyroid disorder
--- OUTSIDE RECORDS SUMMARY | 2025-04-07 18:48 | XMS_ITS | Data Portability ---
Author Organization [place] - [facility], Allergy Address [address] [address] Care Team Providers Care Chief Business Officer Name Role Phone DONELL MOSLEY Primary Care [...] April. She will continue allergy injections at [facility] and maintain her current nasal spray regimen. Antibiotics will be prescribed and sent to [facility] on [facility]. [email or web address] Not available 02/28/2025 10:09:18 Plan of [...] doxycycli ne hyclate 100 mg tablet 2024 [facility]/Pharmacy #[id number], [address] [facility], [place], [address], 03/27/2025 05:02:20 Patient TargetsNo targets recorded. Patient Instructions Encounter Date Encounter Id Patient Instructions Last Modified By Organization Details Last Modified Time 02/28/2025 [id number] - Complete the prescribed three-week course of antibiotics. - Continue using Flonase nasal spray twice daily. - Perform regular nasal rinses with a neti pot. - Schedule and undergo a follow-up CT scan of the sinuses in March or April. - Maintain allergy injections at [facility]. - Take probiotics to prevent gastrointestinal upset [...] contr ast No observ ation record ed. [email or web address] Not Available 10/2024 10:18:27 Result Notes None recorded. Problems Name Problem SNOMED Code Status Onset Date Resolution Date Notes Provider Name and Address Organization Details Recorded Time Deviated nasal septum 381984210 Active NICHOLAS OJEDA MD [address] [place] [address] [place] rose, [address], [facility] - [facility] 10:07:35 Perennial allergic rhinitis 985820879 Active 025 NICHOLAS OJEDA MD [address] [address], [place], [address], [facility] 10:07:37 Chronic sinusitis 41524425 Active 025 NICHOLAS OJEDA MD [address] [address], [place], [address], [facility] 10:07:43 Problem Notes None recorded. Procedures Surgical History Date Name Laterality Status Provider Name and Address Organization Details Recorded Time JMSNasal/Sinus Endoscopy completed NICHOLAS ORTEGA MD [address] [address], [place], [address], [facility] 02/28/2025 10:07:06 Imaging Results None recorded. Procedure Notes None recorded. Medical Equipment None Reported. Allergies Allergen ID Allergen Name Allergen Category Reaction Reaction Severity Criticality Documentation Date Start Date Code Code System Note Provider Name and Address Organization Details Recorded Time 318576 Tylenol-C odeine medicatio n Not available Not available Not available 02/28/2025 Courtney schwartz [place] [facility] 09:49:49 186256 latex environme nt,medica tion Not available Not available Not available 02/28/2025 40483 91 RxNorm Courtney schwartz [place] [facility] 09:49:56 Medications Name Sig Start Date [...] Updated DateTime 02/28/2025 167.64 cm 25.8 kg/m2 79181.78 g Courtney Wagoner [place] - [facility] 02/28/2025 09:50:53 Social History None recorded. [...] ICD10 Code Diagnosis IMO Codes Diagnosis Note [id number] NICHOLAS ALCARAZ MD [facility] of [address] [address] 02/28/2025 09:31:13 02/28/2025 10:12:44 Deviated nasal septum 336592919 J34.2 53403 Perennial allergic rhinitis 879548877 J30.89 728921 Chronic sinusitis 246339 00 J32.8 13925 Health Concerns Section Related Observation LastModified by Organization Detai ls LastModified Time None Recorded Concern Status LastModified by Organization Details LastModified Time None Recorded Advance Directives Directive None Recorded Payers Insurance Date Sequence Insurance Name Policy Number Policy Medley Covered Member ID Medley Member ID Guarantor Name 02/28/2025 1 [facility] [id number] 1 Tiffany Scott [id number] Tiffany Beanine Scott Notes Date Note Type [...] prefers to continue her allergy injections at [facility] for convenience. NOSE=[id number] NICHOLAS ORTEGA MD [address] [place] [address], [place], [address], [facility] - [facility] 02/28/2025 10:11:39 OBGyn Episode No OBEpisode recorded.
== END 2025-04-07 16:47 | disposition home or self-care (01) ==
PROVIDERS: PCP Physician Assistant Medical; Visit Provider Physician Assistant Medical
DX: E03.9 Hypothyroidism, unspecified (principal); J32.9 Chronic sinusitis, unspecified; H26.9 Unspecified cataract